=== PATIENT | female | born 1995 ===

== ENCOUNTER 2022-04-04 09:28 | Emergency (ER) | payer OTHER ==
[2022-04-04] MEDS ORDERED: Sodium Chloride 0.9% 10 ML Syringe FLUSH PRN (09:36)
[2022-04-04] MEDS ORDERED: Acetaminophen 500 MG Tab PO ONE (09:58)
[2022-04-04 10:26] LABS: ANION GAP 13.9 mEq/L (7-13); CHLORIDE,CL 104 mmol/L (98-107); SODIUM,NA 141 mmol/L (136-145)
[2022-04-04 10:28] LABS: ESTIMATED GFR 92 mL/min (>=60)
== END 2022-04-04 10:58 | disposition home or self-care (01) ==
LOC: DL.ED 09:28
DX: Z32.02 Encounter for pregnancy test, result negative (principal)
CPT/HCPCS: 36415; 80053; 81001; 84703; 85025; 87086; 99282; A9270-GY